=== PATIENT | female | born 1945 | race Two or more races ===

== ENCOUNTER 2018-05-19 08:00 | Outpatient (CLI) | payer MEDICARE, MEDICAID ==
--- NOTE | 2018-05-16 14:44 | Pre-Procedure Note/Attestation ---
Pre-Procedure Note/Attestation Complete Prior to Procedure Planned Procedure: right Procedure Narrative: phaco with IOL Indications for Procedure Pre-Operative Diagnosis: cataract Attestation I attest that I discussed the nature of the procedure; its benefits; risks and complications; and alternatives (and the risks and benefits of such alternatives ), prior to the procedure, with the patient (or the patient's legal bottling equipment sales representative). I attest that, if there was a reasonable possibility of needing a blood transfusion, the patient (or the patient's legal bottling equipment sales representative) was given the [facility] standardized written summary, pursuant to the [place] Blood Safety Act ([place] Health and Safety Code # 1645, as amended). I attest that I re-evaluated the patient just prior to the surgery and that there has been no change in the patient's H&P, except as documented below: ARIELLE ORO May 16, 2018 14:44
--- NOTE | 2018-05-16 14:45 | Opthalmology H&P ---
Ophthalmology H&P H&P Chief Complaint: decreased vision in right eye HPI Vision Affects Ability to: read, focus/use eyes together, manage personal affairs HPI Narrative blurry vision Exam Visual Acuity: OD: 20/80 OS: 20/50 Tension: OD: 21 OS: 22 Eye Exam: normal OU: external exam, palpebral fissure-width, marginal reflex distance, levator function, corneas, anterior chambers; findings: lens - OD: NS OS: NS, fundus exam - 0.7 cd OU Assessment/Plan Diagnosis: (1) Nuclear age-related cataract, right eye Treatment Plan: cataract extraction w/ lens implant Goals of Treatment: improvement of vision, enhance quality of life Attestation Attestation The risks and benefits of the surgery as well as alternative procedures were explained to the patient in detail. ARIELLE ORO May 16, 2018 14:45
[2018-05-18 10:45] LABS: BASOPHILS % (AUTO) 1.1 % (0.0-2.0); EOSINOPHILS % (AUTO) 2.5 % (0.0-3.0); HEMATOCRIT 42.7 % (37.0-47.0); HEMOGLOBIN 13.8 G/DL (12.0-16.0); MEAN CORPUSCULAR VOLUME 89 FL (80-99); MONOCYTES % (AUTO) 7.2 % (1.0-10.0); NEUTROPHILS % (AUTO) 64.2 % (45.0-75.0); PLATELET COUNT 270 K/UL (150-450); RED BLOOD COUNT 4.79 M/UL (4.20-5.40); RED CELL DISTRIBUTION WIDTH 12.8 % (11.6-14.8)
[2018-05-18 11:52] LABS: ANION GAP 7 mmol/L (5-15); BLOOD UREA NITROGEN 18 mg/dL (7-18); CARBON DIOXIDE 30 MMOL/L (21-32); CHLORIDE 106 MMOL/L (98-107); CREATININE 0.8 MG/DL (0.55-1.30); POTASSIUM 4.2 MMOL/L (3.5-5.1); SODIUM 143 MMOL/L (136-145)
[~2018-05-19] VITALS: Ht 147.3 cm; Wt 63.5 kg
--- NOTE | 2018-05-19 07:06 | Anethesia Preoperative Eval ---
Anesthesia Pre-op PMH/ROS General Date of Evaluation: May 19, 2018 Time of Evaluation: 07:02 Anesthesiologist: sulma ASA Score: ASA 2 Mallampati Score Class I : Soft palate, uvula, fauces, pillars visible Class II: Soft palate, uvula, fauces visible Class III: Soft palate, base of uvula visible Class IV: Only hard plate visible Mallampati Classification: Class II Surgeon: rai Diagnosis: cataract right eye Surgical Procedure: cataract extraction w/ iol right eye Anesthesia History: none Allergies: Coded Allergies: PENICILLINS (Verified Allergy, Intermediate, 05/19/18) HIVES Anesthesia Pre-op A/P Labs Hematology Test 05/18/18 10:00 White Blood Count 7.0 K/UL (4.8-10.8) Red Blood Count 4.79 M/UL (4.20-5.40) Hemoglobin 13.8 G/DL (12.0-16.0) Hematocrit 42.7 % (37.0-47.0) Mean Corpuscular Volume 89 FL (80-99) Mean Corpuscular Hemoglobin 28.8 PG (27.0-31.0) Mean Corpuscular Hemoglobin Concent 32.4 G/DL (32.0-36.0) Red Cell Distribution Width 12.8 % (11.6-14.8) Platelet Count 270 K/UL (150-450) Mean Platelet Volume 7.7 FL (6.5-10.1) Neutrophils (%) (Auto) 64.2 % (45.0-75.0) Lymphocytes (%) (Auto) 25.0 % (20.0-45.0) Monocytes (%) (Auto) 7.2 % (1.0-10.0) Eosinophils (%) (Auto) 2.5 % (0.0-3.0) Basophils (%) (Auto) 1.1 % (0.0-2.0) Coagulation Test 05/18/18 10:00 Prothrombin Time 10.5 SEC (9.30-11.50) Prothromb Time International Ratio 1.0 (0.9-1.1) Activated Partial Thromboplast Time 26 SEC (23-33) Chemistry Test 05/18/18 10:00 Sodium Level 143 MMOL/L (136-145) Potassium Level 4.2 MMOL/L (3.5-5.1) Chloride Level 106 MMOL/L (98-107) Carbon Dioxide Level 30 MMOL/L (21-32) Anion Gap 7 mmol/L (5-15) Blood Urea Nitrogen 18 mg/dL (7-18) Creatinine 0.8 MG/DL (0.55-1.30) Estimat Glomerular Filtration Rate > 60 mL/min (>60) Glucose Level 100 MG/DL (74-106) Calcium Level 9.0 MG/DL (8.5-10.1) Carie Erickson MD May 19, 2018 07:06
[~2018-05-19 08:00] MED LIST: Akten 3.5% 1ml Btl RIGHT EYE ONE; Atropine Inj 1mg/10ml Syr IV PRN; BSS 15ml BTL ONE; BSS 500ml btl ONE; Carbachol 0.01% Op Soln 1.5ml vial ONE; Cyclopentolate 1% Opth Sol 2ml RIGHT EYE SCH; Diclofenac Sod 0.1% Op Soln RIGHT EYE SCH; DiphenhydrAMINE 50mg/ml Inj IVP PRN; EPINEPHrine 1mg/1ml Amp ONE; Labetalol 5mg/ml 20ml vial IV PRN; Lidocaine 2% MPF 5ml Vial INJ ONE; Midazolam 2mg/2ml Inj IVP PRN; NKM; Phenylephrine 10% Opth Soln 5ml RIGHT EYE SCH; Povidone-Iodine 5% opth solution ONE; Proparacaine 0.5% Opth Soln 15ml RIGHT EYE ONE; Sodium Hyaluronate 14 mg/ml 0.85ml ONE; Tetracaine 0.5% Opth 4ml Soln RIGHT EYE ONE; Tropicamide 1% Opth 15ml Soln RIGHT EYE SCH; acetaZOLAMIDE 500mg Inj ONE; fentaNYL 100 mcg/2 mL IV PRN
[2018-05-19] MEDS ORDERED: Tobramycin Op Soln 0.3% 5ml RIGHT EYE SCH (09:30)
--- NOTE | 2018-05-24 16:37 | Cardiology Report ---
APPROVED REPORT EKG Measurement Heart [id number] Normal sinus rhythm Normal ECG
== END 2018-05-19 10:00 | disposition home or self-care (01) ==
LOC: LAB 08:00 → EDSTATUS 08:15 → LAB 10:00
DX: H25.11 Age-related nuclear cataract, right eye (principal)
CPT/HCPCS: 36415; 80048; 85025; 85610; 85730; 93005

== ENCOUNTER 2018-09-11 06:41 | Day surgery (SDC) | payer MEDICARE, MEDICAID ==
--- NOTE | 2018-09-06 13:32 | Pre-Procedure Note/Attestation ---
Pre-Procedure Note/Attestation Complete Prior to Procedure Planned Procedure: right Procedure Narrative: PHACO WITH IOL Indications for Procedure Pre-Operative Diagnosis: CATARACT Attestation I attest that I discussed the nature of the procedure; its benefits; risks and complications; and alternatives (and the risks and benefits of such alternatives ), prior to the procedure, with the patient (or the patient's legal premium representative). I attest that, if there was a reasonable possibility of needing a blood transfusion, the patient (or the patient's legal premium representative) was given the [facility] standardized written summary, pursuant to the [employer] [place] Blood Safety Act ([place] Health and Safety Code # 1645, as amended). I attest that I re-evaluated the patient just prior to the surgery and that there has been no change in the patient's H&P, except as documented below: Richy Vincent MD Sep 06, 2018 13:32
--- NOTE | 2018-09-06 13:35 | Opthalmology H&P ---
Ophthalmology H&P H&P Chief Complaint: decreased vision in right eye HPI Vision Affects Ability to: read, focus/use eyes together, manage personal affairs HPI Narrative BLURRY VISION Exam Visual Acuity: OD; 20/80 OS; 20/50 Tension: OD; 16 OS;18 Eye Exam: normal OU: external exam, palpebral fissure-width, marginal reflex distance, levator function, corneas, anterior chambers; findings: lens - OD; NS OS; NS, fundus exam - OD; 0.5 OS; 0.5 Assessment/Plan Diagnosis: (1) Nuclear age-related cataract, right eye Treatment Plan: cataract extraction w/ lens implant Goals of Treatment: improvement of vision, enhance quality of life Attestation Attestation The risks and benefits of the surgery as well as alternative procedures were explained to the patient in detail. Richy Vincent MD Sep 06, 2018 13:35
[2018-09-07 09:25] LABS: BASOPHILS % (AUTO) 0.8 % (0.0-2.0); EOSINOPHILS % (AUTO) 1.7 % (0.0-3.0); HEMATOCRIT 42.6 % (37.0-47.0); HEMOGLOBIN 14.3 G/DL (12.0-16.0); LYMPHOCYTES % (AUTO) 16.5 % (20.0-45.0); MEAN CORPUSCULAR VOLUME 87 FL (80-99); MONOCYTES % (AUTO) 6.1 % (1.0-10.0); NEUTROPHILS % (AUTO) 74.9 % (45.0-75.0); PLATELET COUNT 268 K/UL (150-450); RED BLOOD COUNT 4.92 M/UL (4.20-5.40); RED CELL DISTRIBUTION WIDTH 11.9 % (11.6-14.8); WHITE BLOOD COUNT 9.7 K/UL (4.8-10.8)
[2018-09-07 09:34] LABS: INR 0.9 (0.9-1.1)
[2018-09-07 09:40] LABS: ANION GAP 8 mmol/L (5-15); BLOOD UREA NITROGEN 17 mg/dL (7-18); CALCIUM 9.5 MG/DL (8.5-10.1); CARBON DIOXIDE 27 MMOL/L (21-32); CHLORIDE 103 MMOL/L (98-107); CREATININE 0.8 MG/DL (0.55-1.30); POTASSIUM 4.5 MMOL/L (3.5-5.1); SODIUM 138 MMOL/L (136-145)
--- NOTE | 2018-09-08 13:48 | Diagnostic Imaging Report ---
Indication: Dyspnea Comparison: None 2 views of the chest obtained. Findings: There is a rounded calcific density projected over the lower left lateral lung base probably calcified granuloma. Senescent changes are noted within the lungs. Heart is normal in size. Aorta is mildly ectatic. The bones are osteopenic. IMPRESSION: No acute disease
--- NOTE | 2018-09-08 16:17 | Cardiology Report ---
APPROVED REPORT EKG Measurement Heart [id number] Normal sinus rhythm Normal ECG
[2018-09-11] VITALS (8 sets, daily range): BP systolic 130–142; BP diastolic 65–76
[~2018-09-11] VITALS: Ht 147.3 cm; Wt 55.3 kg
[~2018-09-11 06:41] MED LIST changes: -Akten 3.5% 1ml Btl RIGHT EYE ONE; -Atropine Inj 1mg/10ml Syr IV PRN; -BSS 15ml BTL ONE; -BSS 500ml btl ONE; -Carbachol 0.01% Op Soln 1.5ml vial ONE; -Cyclopentolate 1% Opth Sol 2ml RIGHT EYE SCH; -Diclofenac Sod 0.1% Op Soln RIGHT EYE SCH; -DiphenhydrAMINE 50mg/ml Inj IVP PRN; -EPINEPHrine 1mg/1ml Amp ONE; -Labetalol 5mg/ml 20ml vial IV PRN; -Lidocaine 2% MPF 5ml Vial INJ ONE; -Midazolam 2mg/2ml Inj IVP PRN; -Phenylephrine 10% Opth Soln 5ml RIGHT EYE SCH; -Povidone-Iodine 5% opth solution ONE; -Proparacaine 0.5% Opth Soln 15ml RIGHT EYE ONE; -Sodium Hyaluronate 14 mg/ml 0.85ml ONE; -Tetracaine 0.5% Opth 4ml Soln RIGHT EYE ONE; -Tropicamide 1% Opth 15ml Soln RIGHT EYE SCH; -acetaZOLAMIDE 500mg Inj ONE; -fentaNYL 100 mcg/2 mL IV PRN
[2018-09-11] MEDS ORDERED: Proparacaine 0.5% Opth Soln 15ml RIGHT EYE ONE (07:00)
[2018-09-11] MEDS ORDERED: Akten 3.5% 1ml Btl RIGHT EYE ONE (07:00)
[2018-09-11] MEDS ORDERED: Tetracaine 0.5% Opth 4ml Soln RIGHT EYE ONE (07:00)
[2018-09-11] MEDS: Diclofenac Sod 0.1% Op Soln RIGHT EYE SCH ×3 (09:27→09:44)
[2018-09-11] MEDS: Tropicamide 1% Opth 15ml Soln RIGHT EYE SCH ×3 (09:27→09:43)
[2018-09-11] MEDS: Tobramycin Op Soln 0.3% 5ml RIGHT EYE SCH ×3 (09:27→09:43)
[2018-09-11] MEDS: Cyclopentolate 1% Opth Sol 2ml RIGHT EYE SCH ×3 (09:27→09:43)
[2018-09-11] MEDS: Phenylephrine 10% Opth Soln 5ml RIGHT EYE SCH ×3 (09:28→09:43)
[2018-09-11] MEDS ORDERED: EPINEPHrine 1mg/1ml Amp ONE (09:51)
[2018-09-11] MEDS ORDERED: Povidone-Iodine 5% opth solution ONE (09:51)
[2018-09-11] MEDS ORDERED: BSS 500ml btl ONE (09:51)
[2018-09-11] MEDS ORDERED: BSS 15ml BTL ONE (09:51)
[2018-09-11] MEDS ORDERED: Sodium Hyaluronate 14 mg/ml 0.85ml ONE (09:52)
[2018-09-11] MEDS ORDERED: Midazolam 2mg/2ml Inj ONE (09:59)
[2018-09-11] MEDS ORDERED: LR 1000ml ONE (10:00)
[2018-09-11] MEDS ORDERED: Dexamethasone 4mg/ml vial ONE (10:00)
[2018-09-11] MEDS ORDERED: Maxitrol Opth Oint 3.5gm ONE (10:00)
[2018-09-11] MEDS ORDERED: Sterile Water Irrig 1000ml IRRIG ONE (10:00)
[2018-09-11] MEDS ORDERED: Propofol 200mg/20ml IV ONE (10:00)
[2018-09-11] MEDS ORDERED: NS Irrig 1000ml ONE (10:00)
[2018-09-11] MEDS ORDERED: Pred Forte 1% Opth Susp 1ml ONE (10:00)
[2018-09-11] MEDS ORDERED: Pilocarpine 2% Opth 15ml Soln ONE (10:00)
[2018-09-11] MEDS ORDERED: LR 1000ml 1,000 ML IVLG SCH (10:32)
--- NOTE | 2018-09-11 10:42 | Anethesia Preoperative Eval ---
Anesthesia Pre-op PMH/ROS General Date of Evaluation: Sep 11, 2018 Time of Evaluation: 10:00 Anesthesiologist: Wade ASA Score: ASA 2 Mallampati Score Class I : Soft palate, uvula, fauces, pillars visible Class II: Soft palate, uvula, fauces visible Class III: Soft palate, base of uvula visible Class IV: Only hard plate visible Mallampati Classification: Class II Surgeon: Melisa Diagnosis: Cataract right eye Surgical Procedure: Cataract extraction with IOL Allergies: Coded Allergies: PENICILLINS (Verified Allergy, Intermediate, 05/19/18) HIVES Medications: see eMAR Patient NPO?: Yes NPO Date: Sep 10, 2018 NPO Time: 17:00 Past Medical History Cardiovascular: Denies: HTN, CAD, HI, valve dz, arrhythmia, other Pulmonary: Denies: asthma, COPD, DONAVAN, other Gastrointestinal/Genitourinary: Denies: GERD, CRI, ESRD, other Neurologic/Psychiatric: Denies: dementia, CVA, depression/anxiety, TIA, other Endocrine: Denies: DM, hypothyroidism, steroids, other HEENT: Reports: cataract (L), cataract (R); Denies: glaucoma, JACKSON (L), JACKSON (R), other Hematology/Immune: Denies: anemia, DVT, bleeding disorder, other Musculoskeletal/Integumentary: Denies: OA, RA, DJD, DDD, edema, other PMH Narrative: Cataracts right and left eye PSxH Narrative: Cholescystectomy, bunionectomy, cataract left eye Anesthesia Pre-op Phys. Exam Physician Exam Last Vital Signs Date Time Temp Pulse Resp B/P (MAP) Pulse Ox O2 Delivery O2 Flow Rate FiO2 09/11/18 09:40 Room Air 09/11/18 09:28 97.5 65 18 134/69 100 Constitutional: NAD Neurologic: CN 2-12 intact Cardiovascular: RRR, no M/R/G Respiratory: CTA Gastrointestinal: S/NT/ND Airway Exam Mallampati Score: Class II MO: full ROM: full Teeth: intact Anesthesia Pre-op A/P Labs WNL Studies Pre-op Studies: EKG - SR Risk Assessment & Plan Assessment: Relatively healthy 72 yo female for cataract extration Plan: MAC Status Change Before Surgery: No Pre-Antibiotics Drug: None Emeterio Olvera MD Sep 11, 2018 10:42
--- NOTE | 2018-09-11 10:43 | Immediate Post-Op Evaluation ---
Immediate Post-Op Evalulation Immediate Post-Op Evalulation Procedure: Cataract extraction with IOL right eye Date of Evaluation: Sep 11, 2018 Time of Evaluation: 11:15 IV Fluids: 200 Blood Pressure Systolic: 140 Blood Pressure Diastolic: 65 Pulse Rate: 62 Respiratory Rate: 20 O2 Sat by Pulse Oximetry: 99 Temperature (Fahrenheit): 97.6 Pain Score (1-10): 0 Nausea: No Vomiting: No Complications No complication Patient Status: awake, patent, none Hydration Status: adequate Drug: None Emeterio Olvera MD Sep 11, 2018 10:43
[2018-09-11] MEDS ORDERED: fentaNYL 100 mcg/2 mL IV PRN (10:45)
--- NOTE | 2018-09-11 11:08 | 48 Hour Post Anesthesia Eval ---
Post Anesthesia Evaluation Procedure: Cataract extraction with IOL right eye Date of Evaluation: Sep 11, 2018 Time of Evaluation: 11:30 Blood Pressure Systolic: 144 0: 71 Pulse Rate: 62 Respiratory Rate: 16 O2 Sat by Pulse Oximetry: 99 Airway: patent Nausea: No Vomiting: No Pain Intensity: 0 Hydration Status: adequate Cardiopulmonary Status: stable Mental Status/LOC: patient returned to baseline Follow-up Care/Observations: As per surgery Post-Anesthesia Complications: No anesthetic complication Follow-up care needed: N/A Emeterio Olvera MD Sep 11, 2018 11:08
--- NOTE | 2018-09-12 19:58 | Brief Operative Note ---
Immediate Post Operative Note Operative Note Chief Complaint: blurry vision Pre-op Diagnosis: CATARACT, OD Procedure: phaco with IOL Post-op Diagnosis: pseudophakia Post-op Diagnosis: same as pre-op Findings: consistent w/pre-op dx studies Surgeon: Melisa Anesthesiologist: Wade Anesthesia: MAC Specimen: none Complications: none Condition: stable Fluids: LR Estimated Blood Loss: none Drains: none Implant(s) used?: Yes Richy Vincent MD Sep 12, 2018 19:58
--- NOTE | 2018-09-12 19:58 | Operative Note - PDOC ---
Operative Note Operative Note Date of Operation/Procedure: Sep 11, 2018 Chief Complaint: blurry vision Pre-op Diagnosis: CATARACT, OD Procedure: phaco with IOL Post-op Diagnosis: pseudophakia Post-op Diagnosis: same as pre-op Operative Findings: consistent w/pre-op dx studies Surgeon: Melisa Anesthesiologist: Wade Anesthesia: MAC Specimen: none Complications: none Condition: stable Fluids: LR Estimated Blood Loss: none Drains: none Implant(s) used?: Yes Indications for Procedure cataract Description of Procedure This patient has been complaining visually significant cataract in the affected eye with the best corrected visual acuity under moderate glare conditions worse. The patient complains of difficulties with glare in performing activities of daily living and wants to manage personal affairs with comfort and accuracy and see well enough to move with safety at home and outdoors. ~~~ The risks, benefits and alternatives of the procedure were discussed with the patient in the office prior to scheduling surgery. All questions from the patient were answered after the surgical procedure was explained in detail. The risks of the procedure as explained to the patient include, but are not limited to, pain, infection, bleeding, loss of vision, retinal detachment, need for further surgery, loss of lens nucleus, double vision, etc. Alternative procedures were discussed which include, to do nothing or seek a second opinion. Informed consent for this procedure was obtained from the patient. The patient was referred to a primary care physician for a cardiopulmonary clearance prior to surgery, after proper evaluation was done patient was properly scheduled for outpatient surgery. The patient was brought to the operating room where the anesthesiologist established I.V. lines and cardiac monitoring leads. Mild intravenous sedation was administered. Using a solution containing 0.75% Marcaine and 2% lidocaine with Wydase, a peribulbar block was administered to the eye. ~The patient was then prepared with a 5% solution of povidone-iodine to the conjunctival fornix and lashes, and a 10% solution of povidone-iodine to the lids and periorbital skin. The patient was then draped in the usual sterile fashion. A lid speculum was then placed in the operative eye. A keratome blade was then used to create a biplanar incision into the anterior chamber. Viscoelastics was then instilled into the anterior chamber. A curvilinear capsulorrhexis was then fashioned with an utrata forceps. BSS and a cannula were then used to hydrodissect and hydro delineate the lens. Paracentesis incision was made at 3 o'clock with sharp blade. The phacoemulsification unit, after being properly adjusted ~and tested, was then used to emulsify the nucleus. Residual cortical material was aspirated with the irrigation and aspiration unit. Healon was then instilled into the anterior chamber. The corneal wound was then enlarged to the size of the optic with the hodan keratome blade. The intraocular lens was then inspected for right ~ power and size and thought to be satisfactory. Then the lens was gently placed in the capsular bag. Positioning within the capsular bag was confirmed by direct visualization. Optic centration was accomplished with a Sinskey hook. Viscoelastics ~was removed from the anterior chamber using the irrigation and aspiration unit. The corneal wound was then tested for leaks and none were found. The lid speculum were then removed. Sponge and needle counts were correct. An eye patch and shield were placed over the operative eye. The patient was taken to the recovery room in stable condition. There were no complications. The patient tolerated the procedure well. The patient was then transferred to the ambulatory surgery unit in stable and satisfactory condition , was given detailed written instructions and asked to follow up ~in the office the next day. Richy Vincent MD Sep 12, 2018 19:58
--- NOTE | 2018-09-13 18:00 | Pre-op HX & Phy Repo 2 SIG ---
DATE OF ADMISSION: 09/11/2018 PRESURGICAL INTERNAL MEDICINE HISTORY AND PHYSICAL HISTORY OF PRESENT ILLNESS: The patient is a 72-year-old female who was referred by Dr. Richy Vincent. The patient is scheduled for right eye surgery on 09/11/2018. The patient was evaluated at [facility]. This is the second evaluation. The patient was seen on May 06, 2018, at [facility] for right eye surgery, but the surgery was postponed due to infection. The patient came to [facility] for presurgical evaluation on 09/11/2018. The patient is a Romansh-speaking female and used a product development carpenter for evaluation, also I reviewed the old chart from April. PAST MEDICAL HISTORY/REVIEW OF SYSTEMS: Remarkable for recent herpes zoster on the chest and postherpetic neuropathy. Denies history of hypertension. The patient has history of headache and hypertension. No history of stroke. No history of heart attack or chest pain. No GI bleeding or heartburn. Denies history of thyroid problem, anemia, or renal insufficiency. PAST SURGICAL HISTORY: Cholecystectomy 4 years ago. FAMILY HISTORY: Father has otitis and mother after episodes of diarrhea. ALLERGIES: Penicillin. MEDICATIONS: Pain medications, hypertension pills. HABITS: Denies history of smoke or alcohol habits. No street drugs. PHYSICAL EXAMINATION: GENERAL: The patient is alert, well-developed well-nourished female, in her 70s. No acute distress. VITAL SIGNS: Blood pressure 155/91, temperature 96.6, pulse 67, O2 saturation 98% on room air. SKIN: Right side of the chest scars possibly herpes zoster. No open wounds or ulcer. Lymph nodes not enlarged. HEENT: Head, normocephalic and atraumatic. Ears, clear. No discharge. Eyes, full description per Dr. Richy Vincent. LUNGS: Clear to auscultation and percussion. NECK: Supple. CHEST: No deformity or asymmetry. HEART: Sounds are regular. No ectopy. No murmur. No S3, S4. ABDOMEN: Soft. No palpable mass. No rebound. EXTREMITIES: No edema. Degenerative joint disease of the knee. No leg wound. No calf tenderness. NEUROLOGIC: Postherpetic neuropathy. DIAGNOSTIC DATA/LABORATORY DATA: EKG from May 19, 2018, normal sinus rhythm, 60 per minute, normal EKG. The patient to be NPO after midnight on September 10, 2018. Laboratory obtained pending. IMPRESSION: 1. Cataract, right eye. 2. Hypertension. 3. Postherpetic neuropathy. PLAN: Cataract extraction, right eye, per Dr. Richy Vincent. CONCLUSION: The patient is a 72-year-old female with a history of , hypertension controlled, history of herpes zoster, postherpetic neuropathy. The patient is to be NPO after midnight, Tuesday. The patient's condition was optimized for surgery. Thank you very much Dr. Vincent for privilege to participate in the presurgical care of this interesting patient. Moncho Smart M.D. DR: JOSE JOB#: [id number] CC:
== END 2018-09-11 12:25 | disposition home or self-care (01) ==
LOC: SUR 06:41
DX: H25.11 Age-related nuclear cataract, right eye (principal); I10 Essential (primary) hypertension; M19.90 Unspecified osteoarthritis, unspecified site; B02.29 Other postherpetic nervous system involvement; Z90.49 Acquired absence of other specified parts of digestive tract; Z88.0 Allergy status to penicillin
CPT/HCPCS: 36415; 66984; 71046; 80048; 85025; 85610; 85730; 93005; J0171; J1100; J2250; J2704; J3370; V2632; 94003; 94150